=== PATIENT | male | born 1940 | race Caucasian/White ===

== ENCOUNTER 2020-03-20 13:38 | Inpatient (IN) | payer MEDICARE, OTHER ==
[~2020-03-20] VITALS: Ht 167.6 cm; Wt 109.9 kg
[2020-03-20 15:07] LABS: BASOPHILS % 0.4 % (0.0-1.0); EOSINOPHILS # (AUTO) 0.1 (0.0-0.4); EOSINOPHILS % 1.8 % (0.0-6.0); HEMATOCRIT 39.6 % (38.2-49.6); HEMOGLOBIN 12.9 g/dL (14.0-18.0); LYMPHOCYTES # (AUTO) 2.3 (1.0-3.2); LYMPHOCYTES % 28.6 % (18.0-39.1); MEAN CORPUSCULAR HEMOGLOBIN 32.2 pg (28-32); MEAN CORPUSCULAR HGB CONC 32.6 g/dL (31-35); MEAN CORPUSCULAR VOLUME 98.8 fL (81-99); MONOCYTES # (AUTO) 0.7 (0.2-0.8); MONOCYTES % 9.3 % (4.4-11.3); NEUTROPHILS # (AUTO) 4.7 (2.1-6.9); NEUTROPHILS % 59.3 % (38.7-80.0); PLATELET COUNT 235 x10e3/uL (140-360); RED BLOOD COUNT 4.01 x10e6/uL (4.3-5.7); RED CELL DISTRIBUTION WIDTH 13.2 % (11.7-14.4)
[2020-03-20 15:10] LABS: INR 0.93
[2020-03-20 15:11] LABS: PARTIAL THROMBOPLASTIN TIME 28.1 seconds (23.8-35.5)
[2020-03-20 15:21] LABS: ALBUMIN/GLOBULIN RATIO 1.4 (0.8-2.0); ANION GAP 15.5 mmol/L (8-16); CALCIUM 8.3 mg/dL (8.4-10.2); CREATININE, SERUM 2.35 mg/dL (0.72-1.25); POTASSIUM 4.5 mmol/L (3.5-5.1)
[2020-03-20 15:24] LABS: CLARITY,URINE TURBID (CLEAR); COLOR,URINE RED (YELLOW)
[2020-03-20 15:25] LABS: BILIRUBIN,URINE NEGATIVE (NEGATIVE); KETONES,URINE NEGATIVE (NEGATIVE); LEUKOCYTE ESTERASE ,URINE NEGATIVE (NEGATIVE); NITRITE,URINE NEGATIVE (NEGATIVE); PROTEIN,URINE DIPSTICK 2+ (NEGATIVE); URINE UROBILINOGEN 0.2 mg/dL (0.2 - 1)
[2020-03-20 15:27] LABS: CREATINE KINASE MB 1.2 ng/mL (0-5.0)
[2020-03-20 15:28] LABS: RBC,URINE 21-50 /HPF (0-5)
--- NOTE | 2020-03-20 15:52 | Diagnostic Imaging Report ---
EXAMINATION: CHEST SINGLE (PORTABLE) INDICATION: Shortness of breath COMPARISON: None FINDINGS: LINES/TUBES:None LUNGS:The lungs are well-inflated. No focal consolidation or pulmonary edema. PLEURA:No pleural effusion or pneumothorax. MEDIASTINUM:The cardiomediastinal silhouette appears normal in size and shape. BONES/SOFT TISSUES:No acute osseous injury. ABDOMEN:No free air under the diaphragm. IMPRESSION: No focal pneumonia or pulmonary edema. Signed by: Pablo Cox MD on 03/20/2020 3:46 PM
[2020-03-20] MEDS ORDERED: ONDANSETRON HCL INJ 2MG/ML 2ML 2 MG/ML VIAL IV PRN (16:30)
[2020-03-20] MEDS ORDERED: SODIUM CHLORIDE FLUSH 10 ML SYR INJ PRN (16:30)
[2020-03-20] MEDS ORDERED: FUROSEMIDE INJ 10 MG/ML 4 ML VIAL IV ONE (16:30)
--- NOTE | 2020-03-20 16:36 | Emergency Department Note ---
History of Present Illnes History of Present Illness Chief Complaint: Genitourinary History of Present Illness This is a 80 year old male STATES HE'S BEEN URINATING BLOOD SINCE MON DENIES TRAUMA DENIES DYSURIA DENIES ABD PAIN DENIES PROSTATE PROBLEMS STATES HE WAS TAKING 2 ELIQUIS BUT CUT IT DOWN HIMSELF TO 1 THEN NONE Historian: Patient Arrival Mode: Car Heavy Mobile Equipment Repairer Required: No Onset (how long ago): day(s) (3) Location: URINE Quality: BLEEDING, NO PAIN Radiation: non-radiation Severity: mild Onset quality: gradual Progression: unchanged Chronicity: new Relieving factors: none Exacerbating factors: none Associated symptoms: denies other symptoms Treatments prior to arrival: none Past Medical/Family History Physician Review I have reviewed the patient's past medical and family history. Any updates have been documented here. 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 Social History Smoking Cessation: Former smoker Counseling Performed: No Alcohol Use: None Any Illegal Drug Use: No TB Exposure/Symptoms: No Physically hurt or threatened: No Other Last Tetanus: OOD Any Pre-Existing Lines (PICC,: No Is patient up to date on immun: No Last Flu: utd Last Pneumovax: utd Review of Systems Review of Systems Constitutional: no symptoms EENTM: no symptoms Cardiovascular: no symptoms Respiratory: no symptoms Gastrointestinal: no symptoms Genitourinary: as per HPI, hematuria Musculoskeletal: no symptoms Integumentary: no symptoms Neurological: no symptoms Psychological: no symptoms Endocrine: no symptoms Hematological/Lymphatic: no symptoms Review of other systems All other systems reviewed and negative. Physical Exam Related Data Allergies: Coded Allergies: Penicillins (Verified Allergy, Unknown, 01/07/12) Triage Vital Signs Vital Signs Date Time Temp Pulse Resp B/P (MAP) Pulse Ox O2 Delivery O2 Flow Rate FiO2 03/20/20 14:04 97.9 63 18 179/77 99 Physical Exam CONSTITUTIONAL Constitutional: well-developed, well-nourished HENT HENT: normocephalic, atraumatic, oropharynx clear/moist, nose normal HENT - Ear: left ext ear normal, right ext ear normal EYES Eyes: PERRL, conjunctivae normal NECK Neck: ROM normal PULMONARY Pulmonary: effort normal, breath sounds normal CARDIOVASCULAR Cardiovascular: irregular rhythm, capillary refill normal, normal rate, LLE edema (2+), RLE edema (2+) GASTROINTESTINAL Abdominal: soft, nontender, bowel sounds normal GENITOURINARY SKIN Skin: warm, dry MUSCULOSKELETAL Musculoskeletal: ROM normal NEUROLOGICAL Neurological: alert, oriented x 3, no gross motor or sensory deficits PSYCHOLOGICAL Psychiatric/behavioral: mood/affect normal, judgement normal Results Laboratory Result Diagram: 03/20/20 1423 03/20/20 1423 Laboratory Laboratory Tests Test 03/20/20 14:23 White Blood Count 7.98 x10e3/uL (4.8-10.8) Red Blood Count 4.01 x10e6/uL (4.3-5.7) Hemoglobin 12.9 g/dL (14.0-18.0) Hematocrit 39.6 % (38.2-49.6) Mean Corpuscular Volume 98.8 fL (81-99) Mean Corpuscular Hemoglobin 32.2 pg (28-32) Mean Corpuscular Hemoglobin Concent 32.6 g/dL (31-35) Red Cell Distribution Width 13.2 % (11.7-14.4) Platelet Count 235 x10e3/uL (140-360) Neutrophils (%) (Auto) 59.3 % (38.7-80.0) Lymphocytes (%) (Auto) 28.6 % (18.0-39.1) Monocytes (%) (Auto) 9.3 % (4.4-11.3) Eosinophils (%) (Auto) 1.8 % (0.0-6.0) Basophils (%) (Auto) 0.4 % (0.0-1.0) Neutrophils # (Auto) 4.7 (2.1-6.9) Lymphocytes # (Auto) 2.3 (1.0-3.2) Monocytes # (Auto) 0.7 (0.2-0.8) Eosinophils # (Auto) 0.1 (0.0-0.4) Basophils # (Auto) 0.0 (0.0-0.1) Absolute Immature Granulocyte (auto 0.05 x10e3/uL (0-0.1) Prothrombin Time 13.0 seconds (11.9-14.5) Prothromb Time International Ratio 0.93 Activated Partial Thromboplast Time 28.1 seconds (23.8-35.5) Urine Color Red (YELLOW) Urine Clarity Turbid (CLEAR) Urine pH 6 (5 - 7) Urine Specific Morley 1.020 (1.010-1.025) Urine Protein 2+ (NEGATIVE) Urine Glucose (UA) Negative (NEGATIVE) Urine Ketones Negative (NEGATIVE) Urine Blood Moderate (NEGATIVE) Urine Nitrite Negative (NEGATIVE) Urine Bilirubin Negative (NEGATIVE) Urine Urobilinogen 0.2 mg/dL (0.2 - 1) Urine Leukocyte Esterase Negative (NEGATIVE) Urine RBC 21-50 /HPF (0-5) Urine WBC None /HPF (0-5) Urine Epithelial Cells None /LPF (NONE) Urine Bacteria None /HPF (NONE) Sodium Level 141 mmol/L (136-145) Potassium Level 4.5 mmol/L (3.5-5.1) Chloride Level 108 mmol/L (98-107) Carbon Dioxide Level 22 mmol/L (22-29) Anion Gap 15.5 mmol/L (8-16) Blood Urea Nitrogen 53 mg/dL (7-26) Creatinine 2.35 mg/dL (0.72-1.25) Estimat Glomerular Filtration Rate 27 ML/MIN (60-) BUN/Creatinine Ratio 23 (6-25) Glucose Level 140 mg/dL (74-118) Calcium Level 8.3 mg/dL (8.4-10.2) Total Bilirubin 0.4 mg/dL (0.2-1.2) Aspartate Amino Transf (AST/SGOT) 14 IU/L (5-34) Alanine Aminotransferase (ALT/SGPT) 14 IU/L (0-55) Alkaline Phosphatase 54 IU/L (40-150) Creatine Kinase 46 IU/L (30-200) Creatine Kinase MB 1.20 ng/mL (0-5.0) Troponin I 0.016 ng/mL (0-0.300) B-Type Natriuretic Peptide 261.5 pg/mL (0-100) Total Protein 6.8 g/dL (6.5-8.1) Albumin 4.0 g/dL (3.5-5.0) Globulin 2.8 g/dL (2.3-3.5) Albumin/Globulin Ratio 1.4 (0.8-2.0) Procedures 12 Lead ECG Interpretation Heavy Mobile Equipment Repairer: Interpreted by ED physician Date: March 20, 2020 Time: 14:13 Prior WEAPONS AND TACTICS INSTRUCTOR tracings: reviewed Rhythm: atrial fibrillation Rate: normal (66) QRS axis: normal Conduction: right bundle branch block ST Segments Normal: Yes Clinical Impression: abnormal ECG Critical Care Time Subsequent provider I assumed direction of critical care for this patient from another provider of my specialty. Assessment & Plan Assessment & Plan Problems: (1) Hematuria (2) CKD (chronic kidney disease) (3) Atrial fibrillation, chronic (4) CHF (congestive heart failure) Assessment & Plan I SPOKE WITH DR Ángela RDZ TO SEE PT, ADMIT. SPOKE WITH DR CHILEL, CONSULT TO DR LANCASTER SPOKE WITH DR JAMESON Depart Disposition: ADMITTED Last Vital Signs Date Time Temp Pulse Resp B/P (MAP) Pulse Ox O2 Delivery O2 Flow Rate FiO2 03/20/20 14:56 85 24 156/80 100 03/20/20 14:04 97.9 GIANNA SCHMIDT MD March 20, 2020 16:36
--- OUTSIDE RECORDS SUMMARY | 2020-03-20 16:40 | XMS REPORT ---
Author Author [facility] Organization [facility] Address [address] [place] [address] [place] [id number] Phone Unavailable Care Team Providers Care Nurse Reviewer Name Role Phone Hipolito SCHMIDT Attphys Unavailable Problems This patient has no known problems. Allergies, Adverse Reactions, Alerts This patient has no known allergies or adverse reactions. Medications This patient has no known medications. Procedures This patient has no known procedures. Results Test Description Test Time Test Comments Results Result Comments Source CHEST SINGLE (PORTABLE) 2020-03-20 15:46:00 [place] [address] Patient Name: BOBBI PETERSON MR #: [id number] : 1940 Age/Sex: 80/M Req #: [id number] Adm Physician: Ordered by: GIANNA SCHMIDT MD Report #: [id number] Location: ER Room/Bed: Procedure: [id number] DX/CHEST SINGLE (PORTABLE) Exam Date: 03/20/20 Exam Time: 1520 REPORT STATUS: Signed EXAMINATION: CHEST SINGLE (PORTABLE) INDICATION: Shortness of breath COMPARISON: None FINDINGS: LINES/TUBES:None LUNGS:The lungs are well-inflated. No focal consolidation or pulmonary edema. PLEURA:No pleural effusion or pneumothorax. MEDIASTINUM:The cardiomediastinal silhouette appears normal in size and shape. BONES/SOFT TISSUES:No acute osseous injury. ABDOMEN:No free air under the diaphragm. IMPRESSION: No focal pneumonia or pulmonary edema. Signed by: Ximena Lim MD on 03/20/2020 3:46 PM Dictated By: XIMENA LIM MD 154 Transcribed By: DANIEL on 03/20/201545 COPY TO: GIANNA SCHMIDT MD
--- NOTE | 2020-03-20 16:55 | Diagnostic Imaging Report ---
EXAM: CT Abdomen and Pelvis WITHOUT intravenous contrast INDICATION: Hematuria COMPARISON: None. TECHNIQUE: Abdomen and pelvis were scanned utilizing a multidetector helical scanner from the lung base to the pubic symphysis without administration of IV contrast. Coronal and sagittal reformations were obtained. IV CONTRAST: None ORAL CONTRAST: None COMPLICATIONS: None RADIATION DOSE: Total DLP: 821 mGy*cm Dose modulation, iterative reconstruction, and/or weight based adjustment of the mA/kV was utilized to reduce the radiation dose to as low as reasonably achievable. FINDINGS: LOWER THORAX: Normal. HEPATOBILIARY: No focal liver lesion. Cholelithiasis without CT evidence of cholecystitis. SPLEEN: No splenomegaly. PANCREAS: No focal masses or ductal dilatation. ADRENALS: No adrenal nodules. KIDNEYS/URETERS: No hydronephrosis or renal calculi. PELVIC ORGANS/BLADDER: Unremarkable. PERITONEUM / RETROPERITONEUM: No free air or fluid. LYMPH NODES: No lymphadenopathy. VESSELS: Moderate scattered atherosclerotic calcifications of the nonaneurysmal abdominal aorta and major branches. GI TRACT: Diverticulosis without CT evidence of diverticulitis. No abnormal bowel thickening. No bowel obstruction. BONES AND SOFT TISSUES: No acute osseous injury. No suspicious lytic or blastic lesions. Multilevel degenerative changes of the visualized spine. Grade 1 retrolisthesis at all levels from L1-L5. IMPRESSION: No hydronephrosis or renal calculi. No solid renal mass lesion. Cholelithiasis without CT evidence of cholecystitis. Diverticulosis without CT evidence of diverticulitis. Signed by: Pablo Cox MD on 03/20/2020 4:48 PM
[2020-03-20] MEDS: CEFTRIAXONE SOD 1 GM/NS 50 ML 50 ML IV SCH (17:04)
[2020-03-20 20:00] VITALS: BP 174/76
--- NOTE | 2020-03-20 20:00 | NUR ---
RECEIVED THE PATIENT FROM ER IN A STRETCHER VIA WHEEL CHAIR.ADMISSION ASSESSMENT DONE.NO RESP.DISTRESS.NO PAIN VOICED.YOSELYN.LOWER EXTREMITY EDEMA NOTED.TELE #[address]ORIENTED TO THE UNIT.BED LOCKED AND IN LOWEST POSITION.PHONE AND CALL LIGHT WITHIN REACH.INSTRUCTED TO CALL FOR ASSISTANCE NEEDED.KEEP MONITOR THE PATIENT.
[2020-03-20 20:20] VITALS: BP 174/76
[2020-03-20 21:00] VITALS: BP 174/76
--- NOTE | 2020-03-20 21:10 | NUR ---
As per the report from er.notified to consults .
--- NOTE | 2020-03-20 21:41 | NUR ---
Cardiology Consult Dictation# [id number]
[2020-03-20] MEDS: METOPROLOL TARTRATE INJ 1 MG/ML VIAL IV PRN (22:00)
--- NOTE | 2020-03-20 22:00 | NUR ---
BP NOTED 174/76 MMOF HG.METOPROLOL 5 MG IV GIVEN.PATIENT IS UNABLE TO PROVIDE HOME MED LIST.
[2020-03-21] VITALS (8 sets, daily range): BP systolic 135–185; BP diastolic 67–83
--- NOTE | 2020-03-21 00:46 | Consultation ---
DATE OF CONSULTATION: 03/20/2020 Cardiology Consultation REQUESTING PHYSICIAN: Carlos Burton MD. REASON FOR CONSULTATION: Atrial fibrillation. HISTORY OF PRESENT ILLNESS: This is an 80-year-old male with history of atrial fibrillation, diabetes mellitus, hypertriglyceridemia, and hypertension, who presents with complaints of hematuria. The patient reports he has been noting acute intermittent blood in his underwear since November. Two days ago, he noted robson hematuria with visible clot. He therefore presented to the hospital for further evaluation. On speaking with the patient, he indicates that he had been progressively self discontinuing medications in attempt to determine what is causing his hematuria. Of note, he has been off Eliquis for one week. In addition, he has held occasional doses of Lasix due to the inconvenience of frequent urination with resulting increase in lower extremity swelling for the last few days. He denies any chest pain, palpitations, orthopnea, PND, or lightheadedness, but does endorse chronic dyspnea on exertion. REVIEW OF SYSTEMS: Negative except as per HPI. PAST MEDICAL HISTORY: 1. Atrial fibrillation on Eliquis, followed by Dr. Tejada for his cardiac care. 2. Diabetes mellitus. 3. Hypertriglyceridemia. 4. Hypertension. 5. Chronic kidney disease. 6. Glaucoma. 7. History of prostate cancer. PAST SURGICAL HISTORY: 1. Abdominal surgery. 2. Cataract surgery. ALLERGIES: PLEASE SEE EMR. MEDICATIONS: Please see medication list. SOCIAL HISTORY: Denies tobacco, alcohol, or illicit drugs. FAMILY HISTORY: Denies. PHYSICAL EXAMINATION: VITAL SIGNS: Temperature 97.4 degrees, pulse 98, respiratory rate 20, blood pressure 172/80, and oxygen saturation 99%. GENERAL: Obese gentleman, in no acute distress. Well-developed, well-nourished. HEENT: Normocephalic, atraumatic. Pupils equal. No scleral icterus. NECK: Supple. No thyromegaly or cervical lymphadenopathy. No carotid bruits. LUNGS: Clear to auscultation bilaterally. No wheezes or crackles. CARDIOVASCULAR: Normal rate. Irregularly irregular. No murmur. Normal S1, S2. ABDOMEN: Soft, nontender. EXTREMITIES: 1+ pitting edema. SKIN: Changes consistent with chronic venous stasis. NEUROLOGIC: Nonfocal exam. LABORATORY DATA: WBC 7.98, hemoglobin 12.9, hematocrit 39.6, platelets 235. Sodium 141, potassium 4.5, chloride 108, CO2 22, BUN 53, creatinine 2.53. Troponin 0.016. BNP 261. EKG, atrial fibrillation with right bundle-branch block. IMPRESSION: 1. Hematuria. 2. Atrial fibrillation. 3. Right bundle-branch block. 4. Diabetes mellitus. 5. Hypertriglyceridemia. 6. Hypertension. 7. Chronic kidney disease. RECOMMENDATIONS: Obtain echocardiogram. Hold the patient's Eliquis given gross hematuria. Monitor the patient closely on telemetry. I agree with gentle diuretics given elevated BNP. Monitor creatinine closely, replete electrolytes. Evaluation of hematuria per Urology. Thank you for this consult. We will continue to follow. Marlena Bradford MD ABS/MODL /[id number]
[2020-03-21 01:03] LABS: CREATINE KINASE MB 1.5 ng/mL (0-5.0)
--- NOTE | 2020-03-21 01:40 | NUR ---
PATIENT VOIDED CLEAR URINE.
--- NOTE | 2020-03-21 06:00 | NUR ---
TRIED TO REACH REGARDING HOME MEDICATION LIST.LEFT MESSAGE.
--- NOTE | 2020-03-21 06:26 | NUR ---
H&P cc: hematuria HPI: 80yoM, PCP none, developed hematuria while on eliquis. Pt had bloody urine for 4 days; no cp/sob. 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, prostate cancer, gait disturbance using walker, periperal edema PSHx: cataract; prostate Allergies; see emr Fh/SH; ; no cigs med;s see MAR ROS: no dizziness/skin rash/back pain/sob/ORDONEZ/vision changes/N/V/D/Cp/SOB v/s; revd PE tired appearing anicteric ns1s2 mod bs soft nt nd 1+ leg edema; skin dry a&ox3; chadwick normal mood labs/meds revd A/P: 80yoM Hematuria- hold eliquis; urology eval Chr A.fib- hold eliquis; cardio on board; f/u echo CHF- f/u echo Peripheral edema- monitor fluid status Gait disturbance- cont walker and PT consult CKD3 due to DM2- monitor; check hab1c/lipids HTN HLD Hx prostate CA DIverticulosis - high fiber diet Cholelithiasis- asymptomatic Prop: Dispo: Cyril Claudio MD, PHD.
[2020-03-21] MEDS ORDERED: DOCUSATE SODIUM 100 MG CAP PO PRN (06:30)
[2020-03-21] MEDS ORDERED: ACETAMINOPHEN 325 MG TAB PO PRN (06:30)
--- NOTE | 2020-03-21 07:00 | NUR ---
Bed side shift report given to oncoming rn.stable condition.
--- NOTE | 2020-03-21 07:01 | NUR ---
BEDSIDE SHIFT REPORT RECEIVED FROM PM NURSE. PT SLEEPING, EASILY AROUSED, NO SIGNS OF DISTRESS. WILL CONTINUE TO MONITOR.
[2020-03-21 08:30] LABS: BASOPHILS % 0.3 % (0.0-1.0); EOSINOPHILS # (AUTO) 0.2 (0.0-0.4); EOSINOPHILS % 2.7 % (0.0-6.0); HEMATOCRIT 40.9 % (38.2-49.6); HEMOGLOBIN 13.3 g/dL (14.0-18.0); LYMPHOCYTES # (AUTO) 1.5 (1.0-3.2); LYMPHOCYTES % 24.2 % (18.0-39.1); MEAN CORPUSCULAR HGB CONC 32.5 g/dL (31-35); MEAN CORPUSCULAR VOLUME 98.6 fL (81-99); MONOCYTES # (AUTO) 0.7 (0.2-0.8); NEUTROPHILS # (AUTO) 3.8 (2.1-6.9); NEUTROPHILS % 61.3 % (38.7-80.0); PLATELET COUNT 225 x10e3/uL (140-360); RED BLOOD COUNT 4.15 x10e6/uL (4.3-5.7); RED CELL DISTRIBUTION WIDTH 13.4 % (11.7-14.4)
[2020-03-21 08:49] LABS: ALBUMIN 3.9 g/dL (3.5-5.0); ALBUMIN/GLOBULIN RATIO 1.3 (0.8-2.0); ANION GAP 16.2 mmol/L (8-16); CALCIUM 9.2 mg/dL (8.4-10.2); CREATININE, SERUM 2.26 mg/dL (0.72-1.25); POTASSIUM 4.2 mmol/L (3.5-5.1)
[2020-03-21 09:10] LABS: CREATINE KINASE MB 2.1 ng/mL (0-5.0)
--- NOTE | 2020-03-21 09:58 | Consultation ---
DATE OF CONSULTATION: 03/21/2020 Urology Consultation REASON FOR CONSULTATION: Gross hematuria. HISTORY OF PRESENT ILLNESS: Moose Moralez is an 80-year-old man, who over 10 years ago was diagnosed with prostate cancer at [facility]. The patient had a complication after this of pelvic abscess and scrotal abscess and required two surgical interventions. The patient was found to have one core of prostate cancer and he went to [facility] where he got proton beam therapy. The patient since the fall noted gross hematuria with b.i.d. dosing of his blood thinner that decreased when he decreased it to once a day. The patient had severe gross hematuria last week and about a week ago stopped his blood thinner, but over the last four days, he still had gross hematuria, so he was reported to the emergency room, and was subsequently admitted. His hematuria has improved since he has been in the hospital. The patient denies dysuria. He reports once a night nocturia. He denies any urolithiasis and urinary tract infections. PAST MEDICAL AND SURGICAL HISTORY: 1. Diabetes mellitus. 2. Hypertension. 3. Hypercholesterolemia. 4. Obesity. 5. Atrial fibrillation followed by Dr. Tejada. 6. Hypertriglyceridemia. 7. Chronic kidney disease. 8. Glaucoma. 9. Status post cataract surgery. ALLERGIES: PENICILLIN. CURRENT MEDICATIONS: Please refer to the MAR. SOCIAL HISTORY: The patient denies smoking, ethanol or drug use. He [place] near the [facility]. He used to work in a chemical plant. FAMILY HISTORY: Noncontributory to the active urological problems. REVIEW OF SYSTEMS: Discussed as above in the history of present illness and past medical history, it is otherwise negative for all systems. PHYSICAL EXAMINATION: GENERAL: A very pleasant 80-year-old man, lying in bed, in no apparent distress. He is currently afebrile. VITAL SIGNS: Currently stable. ABDOMEN: Soft, nondistended, nontender, and obese. There was scarring in the lower abdomen consistent with prior abscess drainage. GENITOURINARY: Testes are descended bilaterally. Testes and epididymides bilaterally unremarkable and nontender. The patient has a normal circumcised male phallus with normal meatus without any lesion. Digital rectal examination is deferred at the present time. For the remaining physical examination systems, please refer to the admission history and physical on the chart. LABORATORY STUDIES: CT scan of the abdomen and pelvis was done without contrast. It revealed unremarkable kidneys, it did reveal cholelithiasis. Urine culture is pending. White blood cell count is 7980, hemoglobin 12.9, platelets 235,000. The patient's creatinine is elevated at 2.35. His calcium is low at 8.3. Urinalysis significant for 21-50 RBCs as well as 2+ protein. ASSESSMENT: 1. Prostate cancer status post radiotherapy. 2. Nocturia. 3. Anemia. 4. Cholelithiasis without symptoms. 5. Chronic renal insufficiency. 6. Gross hematuria. 7. Hypocalcemia. 8. Proteinuria. 9. Obesity. PLAN: 1. We will await urine culture and sensitivity. 2. Hold all blood thinners. 3. I will post the patient to the operating room for cystoscopy with retrograde pyelograms and indicated procedures. The patient's prior radiotherapy as well as working in a chemical plant puts him in a risk for having bladder cancer. 4. I defer the hematological and electrolyte abnormalities to the primary team. Thank you much for involving us in the care of your patient. We will be happy to follow him along with you as well as an outpatient. Gage MD Eloise OH/BETI /[id number]
--- NOTE | 2020-03-21 11:44 | Progress Note ---
DATE: 03/21/2020 Cardiology progress note SUBJECTIVE: The patient denies chest pain or shortness of breath. He reports his hematuria has resolved. OBJECTIVE: VITAL SIGNS: Temperature 96.2 degrees, pulse 79, respiratory rate 20, blood pressure 163/76, and oxygen saturation 94%. GENERAL: Obese man, in no acute distress. Awake and alert. LUNGS: Clear to auscultation bilaterally. No wheezes or crackles. CARDIOVASCULAR: Normal rate. Irregularly irregular rhythm. No murmur. Normal S1, S2. ABDOMEN: Soft, nontender. EXTREMITIES: 1+ pitting edema. CARDIAC MEDICATIONS: None. LABORATORY DATA: Sodium 142, potassium 4.2, chloride 106, CO2 of 24, BUN 51, and creatinine 2.26. WBC 6.19, hemoglobin 13.3, hematocrit 40.9, and platelets 225. TELEMETRY: Personally reviewed and interpreted revealing atrial fibrillation with PVCs. IMPRESSION: 1. Hematuria. 2. Atrial fibrillation. 3. Right bundle-branch block. 4. Diabetes mellitus. 5. Hypertriglyceridemia. 6. Hypertension. 7. Chronic kidney disease. RECOMMENDATIONS: Echocardiogram is pending. We will review the images once available. Continue to hold Eliquis given recent hematuria while Urology evaluation is ongoing. Monitor patient closely on telemetry. Creatinine was stable. Continue gentle diuretics. Replete electrolytes. Continue home cardiac medications otherwise. Thank you for this consult. We will continue to follow. Marlena Bradford MD ABS/MODL /[id number]
[2020-03-21] MEDS ORDERED: TRESIBA100 UNIT/1 (12:05)
[2020-03-21] MEDS ORDERED: GLIMEPIRIDE4 MG PO (12:05)
[2020-03-21] MEDS ORDERED: HYDRALAZINE HCL25 MG PO (12:05)
[2020-03-21] MEDS ORDERED: METOLAZONE5 MG PO (12:05)
[2020-03-21] MEDS ORDERED: PROPAFENONE HC325 MG PO (12:05)
[2020-03-21] MEDS ORDERED: SIMVASTATIN10 MG PO (12:05)
[2020-03-21] MEDS ORDERED: FUROSEMIDE40 MG PO (12:05)
--- NOTE | 2020-03-21 12:19 | NUR ---
SPOKE WITH DR. CHILEL AND REVIEWED HOME MED LIST; STATES CAN RESTART SIMVASTATIN ONLY.
[2020-03-21] MEDS: FUROSEMIDE INJ 10 MG/ML 4 ML VIAL IV SCH ×2 (12:48→18:16)
[2020-03-21 17:03] LABS: CREATINE KINASE MB 2.2 ng/mL (0-5.0)
[2020-03-21] MEDS ORDERED: SODIUM CHLORIDE 0.9% 250ML 250 ML ONE (17:55)
[2020-03-21] MEDS: CEFTRIAXONE SOD 1 GM/NS 50 ML 50 ML IV SCH (18:15)
[2020-03-21] MEDS: METOPROLOL TARTRATE INJ 1 MG/ML VIAL IV PRN (18:17)
--- NOTE | 2020-03-21 19:15 | NUR ---
RECEIVED THE PATIENT IN REPORT.AAOX3.BED LOCKED AND IN LOWEST POSITION.PHONE AND CALL LIGHT WITHIN REACH.INSTRUCTED TO CALL FOR ASSISTANCE NEEDED.
[2020-03-21] MEDS ORDERED: NON-FORMULARY MEDICATION (Simvastatin 10 MG) PO SCH (21:00)
[2020-03-21] MEDS ORDERED: ZOLPIDEM TARTRATE 5 MG TAB PO PRN (21:00)
[2020-03-21] MEDS: SIMVASTATIN 20 MG TAB PO SCH (21:29)
[2020-03-21] MEDS: PROPAFENONE HCL 225 MG CAPCR PO SCH (21:29)
--- NOTE | 2020-03-21 22:00 | NUR ---
patient refused to do Achs.
[2020-03-22] VITALS (8 sets, daily range): BP systolic 113–173; BP diastolic 60–78
[2020-03-22] MEDS: METOPROLOL TARTRATE INJ 1 MG/ML VIAL IV PRN ×2 (00:51→20:15)
--- NOTE | 2020-03-22 01:38 | NUR ---
Resting in the bed.stable condition.
[2020-03-22] MEDS: PROPAFENONE HCL 225 MG CAPCR PO SCH ×3 (05:58→21:41)
--- NOTE | 2020-03-22 06:39 | NUR ---
IM- progress note O/N see below ROS: no dizziness/skin rash/back pain/sob/ORDONEZ/vision changes/N/V/D/Cp/SOB v/s; revd PE tired appearing anicteric ns1s2 mod bs soft nt nd 1+ leg edema; skin dry a&ox3; chadwick normal mood labs/meds revd A/P: 80yoM Hematuria- hold eliquis; urology eval Chr A.fib- hold eliquis; cardio on board; f/u echo CHF- f/u echo Peripheral edema- monitor fluid status Gait disturbance- cont walker and PT consult CKD3 due to DM2- monitor; check hab1c/lipids HTN HLD Hx prostate CA DIverticulosis - high fiber diet Cholelithiasis- asymptomatic Prop: Dispo: 5-15 cystoscopy pending; coronavirus test pending; ROBERT in CKD3; Cyril Claudio MD, PHD.
--- NOTE | 2020-03-22 07:05 | NUR ---
ON NPO BED SIDE SHIFT REPORT GIVEN TO ONCOMING RN.STABLE CONDITION.
[2020-03-22] MEDS: FUROSEMIDE INJ 10 MG/ML 4 ML VIAL IV SCH ×2 (10:00→17:52)
[2020-03-22 12:18] LABS: ANION GAP 19.1 mmol/L (8-16); CALCIUM 9.2 mg/dL (8.4-10.2); CREATININE, SERUM 2.36 mg/dL (0.72-1.25); POTASSIUM 5.1 mmol/L (3.5-5.1)
[2020-03-22] MEDS ORDERED: IOPAMIDOL 300MG/ML 50ML INFUS..BTL IV ONE (14:01)
[2020-03-22] MEDS ORDERED: B&O 60MG R/S 60 MG SUPP PR ONE (14:01)
--- NOTE | 2020-03-22 14:18 | Progress Note ---
DATE: 03/22/2020 Cardiology Progress Note SUBJECTIVE: The patient denies chest pain or shortness of breath. He is awaiting cystoscopy. OBJECTIVE: VITAL SIGNS: Temperature 97 degrees, pulse 85, respiratory rate 18, blood pressure 173/78, and oxygen saturation 97%. GENERAL: Awake, alert, in no acute distress. LUNGS: Clear to auscultation bilaterally. No wheezes or crackles. CARDIOVASCULAR: Normal rate. Irregularly irregular. No murmur. Normal S1, S2. ABDOMEN: Soft, nontender. EXTREMITIES: 1+ pitting edema. CARDIAC MEDICATIONS: 1. Prozac 40 mg IV b.i.d. 2. Simvastatin 10 mg p.o. at bedtime. LABORATORY DATA: Labs none today. TELEMETRY: Personally reviewed and interpreted, revealing atrial fibrillation. IMPRESSION: 1. Hematuria. 2. Atrial fibrillation. 3. Right bundle-branch block. 4. Diabetes mellitus. 5. Hypertriglyceridemia. 6. Hypertension. 7. Chronic kidney disease. RECOMMENDATIONS: Echocardiogram revealed normal LV systolic function with mild concentric LVH. Pseudonormal LV filling pattern was noted. Continue IV diuretics. Volume status is gradually improving. We will continue to hold Eliquis, given recent hematuria while Urology evaluation is ongoing. Monitor the patient closely on telemetry. Home propafenone has been resumed. Monitor heart rate closely. Monitor creatinine. Replete electrolytes. Continue current cardiac medications otherwise. Thank you for this consult. We will continue to follow. Marlena Bradford MD ABS/MODL /[id number]
--- NOTE | 2020-03-22 15:35 | NUR ---
patient returned from OR. natarajan in place. denies pain at this time. wctm.
[2020-03-22] MEDS ORDERED: ACETAMINOPHEN/CODEINE 300MG - 30MG TAB PO PRN (16:45)
[2020-03-22] MEDS ORDERED: B&O 60MG R/S 60 MG SUPP PR PRN (16:45)
--- NOTE | 2020-03-22 17:30 | NUR ---
natarajan draining red urine. natarajan irrigated and a few small clots evacuated. wctm.
[2020-03-22] MEDS: CEFTRIAXONE SOD 1 GM/NS 50 ML 50 ML IV SCH (17:52)
[2020-03-22] MEDS ORDERED: ONDANSETRON HCL INJ 2MG/ML 2ML 2 MG/ML VIAL ONE (18:12)
[2020-03-22] MEDS ORDERED: LIDOCAINE HCL 2% LOCAL INJ 5 ML SDV VIAL INJ ONE (18:12)
[2020-03-22] MEDS ORDERED: PHENYLEPHRINE HCL 1% 10 MG/ML VIAL ONE (18:12)
[2020-03-22] MEDS ORDERED: PROPOFOL IV EMULSION 10 MG/ML 20 ML VIAL ONE (18:12)
[2020-03-22] MEDS ORDERED: SEVOFLURANE INHAL SOLN 250 ML PEN BTL ONE (18:12)
[2020-03-22] MEDS: PHENAZOPYRIDINE HCL 100 MG TAB PO SCH (18:44)
[2020-03-22] MEDS ORDERED: FENTANYL CITRATE/PF 100MCG/2 ML INJ ONE (19:50)
[2020-03-22] MEDS: SIMVASTATIN 20 MG TAB PO SCH (20:15)
[2020-03-23] VITALS (8 sets, daily range): BP systolic 139–192; BP diastolic 53–73
[2020-03-23] MEDS: METOPROLOL TARTRATE INJ 1 MG/ML VIAL IV PRN ×2 (00:17→06:46)
--- NOTE | 2020-03-23 04:57 | NUR ---
IM- progress note O/N see below ROS: no dizziness/skin rash/back pain/sob/ORDONEZ/vision changes/N/V/D/Cp/SOB v/s; revd PE tired appearing anicteric ns1s2 mod bs soft nt nd 1+ leg edema; skin dry a&ox3; [place]wick normal mood labs/meds revd A/P: 80yoM Hematuria- hold eliquis; urology eval Chr A.fib- hold eliquis; cardio on board; f/u echo CHF- f/u echo Peripheral edema- monitor fluid status Gait disturbance- cont walker and PT consult CKD3 due to DM2- monitor; check hab1c/lipids HTN HLD Hx prostate CA DIverticulosis - high fiber diet Cholelithiasis- asymptomatic Prop: Dispo: 5-15 cystoscopy pending; coronavirus test pending; ROBERT in CKD3; 5-16 check labs; Cystoscpy = bladder cancer removed; Cyril Claudio MD, PHD.
[2020-03-23] MEDS: PROPAFENONE HCL 225 MG CAPCR PO SCH ×3 (06:00→21:09)
[2020-03-23] MEDS: PHENAZOPYRIDINE HCL 100 MG TAB PO SCH ×3 (08:08→17:10)
[2020-03-23] MEDS: FUROSEMIDE INJ 10 MG/ML 4 ML VIAL IV SCH ×2 (08:08→17:10)
--- NOTE | 2020-03-23 14:48 | NUR ---
patient refusing to turn even with staff provocation.
[2020-03-23] MEDS: CEFTRIAXONE SOD 1 GM/NS 50 ML 50 ML IV SCH (17:10)
--- NOTE | 2020-03-23 18:18 | Progress Note ---
DATE: 03/23/2020 Cardiology progress note SUBJECTIVE: The patient denies chest pain or shortness of breath. OBJECTIVE: VITAL SIGNS: Temperature 98.6 degrees, pulse 86, respiratory rate 18, blood pressure 152/67, and oxygen saturation 99% on room air. GENERAL: Awake, alert, in no acute distress. LUNGS: Clear to auscultation bilaterally. No wheezes or crackles. CARDIOVASCULAR: Normal rate. Regular rhythm. No murmur. Normal S1, S2. ABDOMEN: Soft, nontender. EXTREMITIES: Trace edema. CARDIAC MEDICATIONS: 1. Propafenone 225 mg p.o. q.8 hours. 2. Furosemide 40 mg IV b.i.d. 3. Simvastatin 10 mg p.o. at bedtime. LABORATORY DATA: None today. TELEMETRY: Personally reviewed and interpreted, revealing normal sinus rhythm with PVCs. IMPRESSION: 1. Hematuria. 2. Atrial fibrillation. 3. Right bundle-branch block. 4. Diabetes mellitus. 5. Hypertriglyceridemia. 6. Hypertension. 7. Chronic kidney disease. RECOMMENDATIONS: Echocardiogram revealed normal LV systolic function with mild concentric LVH. Pseudonormal LV filling pattern was noted. Continue IV diuretics. Monitor creatinine. Replete electrolytes. Volume status has improved. Monitor the patient closely on telemetry. Continue propafenone. The patient brought his medication from home for use. The patient will need to restart Eliquis for CVA prophylaxis once Urology evaluation has been completed. Await their recommendations. Continue current cardiac medications. Thank you for this consult. We will continue to follow. Marlena Bradford MD ABS/MODL /[id number]
[2020-03-23 20:05] LABS: BASOPHILS % 0.2 % (0.0-1.0); EOSINOPHILS # (AUTO) 0.1 (0.0-0.4); EOSINOPHILS % 1.2 % (0.0-6.0); HEMATOCRIT 41.1 % (38.2-49.6); LYMPHOCYTES # (AUTO) 1.6 (1.0-3.2); LYMPHOCYTES % 16.6 % (18.0-39.1); MEAN CORPUSCULAR HEMOGLOBIN 31.9 pg (28-32); MEAN CORPUSCULAR HGB CONC 31.6 g/dL (31-35); MEAN CORPUSCULAR VOLUME 100.7 fL (81-99); MONOCYTES # (AUTO) 1.1 (0.2-0.8); MONOCYTES % 11.6 % (4.4-11.3); NEUTROPHILS # (AUTO) 6.5 (2.1-6.9); NEUTROPHILS % 69.9 % (38.7-80.0); PLATELET COUNT 205 x10e3/uL (140-360); RED BLOOD COUNT 4.08 x10e6/uL (4.3-5.7); RED CELL DISTRIBUTION WIDTH 13.2 % (11.7-14.4)
[2020-03-23 20:20] LABS: ANION GAP 17.4 mmol/L (8-16); CALCIUM 8.9 mg/dL (8.4-10.2); CREATININE, SERUM 2.64 mg/dL (0.72-1.25); POTASSIUM 4.4 mmol/L (3.5-5.1)
[2020-03-23] MEDS: SIMVASTATIN 20 MG TAB PO SCH (21:09)
[2020-03-23] MEDS ORDERED: DEXTROSE 50% SYRINGE 50 ML IV PRN (21:15)
--- NOTE | 2020-03-23 21:15 | NUR ---
SPOKE TO DR. CHILEL REGARDING BLOOD GLUCOSE READING 294. NEW ORDER RECEIVED FOR A LOW DOSE HUMULIN R SLIDING SCALE.
[2020-03-23] MEDS: INSULIN REGULAR, HUMAN 100 UNIT/1 ML 3ML VIAL SQ SCH (21:25)
[2020-03-24] VITALS (8 sets, daily range): BP systolic 127–161; BP diastolic 66–89
[2020-03-24] MEDS: PROPAFENONE HCL 225 MG CAPCR PO SCH ×3 (05:43→21:30)
[2020-03-24] MEDS: INSULIN REGULAR, HUMAN 100 UNIT/1 ML 3ML VIAL SQ SCH ×4 (07:30→20:38)
[2020-03-24] MEDS: FUROSEMIDE INJ 10 MG/ML 4 ML VIAL IV SCH ×2 (08:04→17:06)
[2020-03-24] MEDS: PHENAZOPYRIDINE HCL 100 MG TAB PO SCH ×3 (08:04→17:07)
--- NOTE | 2020-03-24 12:14 | NUR ---
IM- progress note O/N see below ROS: no dizziness/skin rash/back pain/sob/ORDONEZ/vision changes/N/V/D/Cp/SOB v/s; revd PE tired appearing anicteric ns1s2 mod bs soft nt nd 1+ leg edema; skin dry a&ox3; [place]wick normal mood labs/meds revd A/P: 80yoM Hematuria- hold eliquis; urology eval Chr A.fib- hold eliquis; cardio on board; f/u echo CHF- f/u echo Peripheral edema- monitor fluid status Gait disturbance- cont walker and PT consult CKD3 due to DM2- monitor; check hab1c/lipids HTN HLD Hx prostate CA DIverticulosis - high fiber diet Cholelithiasis- asymptomatic Prop: Dispo: 5-15 cystoscopy pending; coronavirus test pending; ROBERT in CKD3; 5-16 check labs; Cystoscpy = bladder cancer removed; 5-17 d/c planning; Cyril Claudio MD, PHD.
[2020-03-24 13:16] LABS: CHOL/HDL RATIO 4.7 (3.9-4.7)
[2020-03-24] MEDS: CEFTRIAXONE SOD 1 GM/NS 50 ML 50 ML IV SCH (17:06)
[2020-03-24] MEDS: METOPROLOL TARTRATE 25 MG TAB PO SCH (17:07)
--- NOTE | 2020-03-24 20:13 | Progress Note ---
DATE: 03/24/2020 Cardiology Progress Note SUBJECTIVE: The patient denies chest pain or shortness of breath. OBJECTIVE: VITAL SIGNS: Temperature 99.4 degrees, pulse 119, respiratory rate 20, blood pressure 161/89, and oxygen saturation 97% on room air. GENERAL: Awake, alert, and in no acute distress. LUNGS: Clear to auscultation bilaterally. No wheezes or crackles. CARDIOVASCULAR: Tachycardic. Irregularly irregular. No murmur. Normal S1 and S2. ABDOMEN: Soft and nontender. EXTREMITIES: Trace edema. CARDIAC MEDICATIONS: Propafenone 225 mg p.o. q.8 hours, furosemide 40 mg IV b.i.d., and simvastatin 10 mg p.o. at bedtime. LABORATORY DATA: WBC 9.35, hemoglobin 13, hematocrit 41.1, and platelets 205. Cholesterol , triglycerides 228, LDL 79, and HDL 34. Telemetry was personally reviewed and interpreted, revealing atrial fibrillation with rapid ventricular response. IMPRESSION: 1. Hematuria. 2. Atrial fibrillation with rapid ventricular response. 3. Right bundle-branch block. 4. Diabetes mellitus. 5. Hypertriglyceridemia. 6. Hypertension. 7. Chronic kidney disease. RECOMMENDATIONS: Echocardiogram revealed normal LV systolic function with mild concentric LVH. Pseudonormal LV filling pattern was noted. Continue IV diuretics. Monitor creatinine. Replete electrolytes. Lung status has improved. Monitor the patient closely on telemetry. Continue propafenone. We will start metoprolol for rate control as well. The patient will need to restart Eliquis for CVA prophylaxis once Urology evaluation has been completed. Await their recommendations. Continue current cardiac medications. Thank you for this consult. We will continue to follow. Marlena Bradford MD ABS/MODL /[id number]
[2020-03-24] MEDS: SIMVASTATIN 20 MG TAB PO SCH (20:38)
[2020-03-25 00:05] VITALS: BP 101/60
--- NOTE | 2020-03-25 02:54 | Operative Report ---
DATE OF PROCEDURE: 03/22/2020 SURGEON: Gage Navas MD PREOPERATIVE DIAGNOSIS: Hematuria. POSTOPERATIVE DIAGNOSES: 1. Hematuria. 2. Bladder cancer. 3. Potential for left renal colic. OPERATIONS PERFORMED: 1. Cystourethroscopy with bilateral ureteral catheterization and retrograde ureteropyelography. 2. Cystourethroscopy with insertion of left indwelling ureteral stent. 3. Cystourethroscopy with transurethral resection of medium-sized bladder tumor at ranging in diameter of resection area to greater than 3 cm (separate procedure performed for the bladder cancer). ANESTHESIA: General. COMPLICATIONS: None. CLINICAL SUMMARY: Moose Moralez is an 80-year-old male with gross hematuria. He was brought for the above procedures. He is aware of the risks of bleeding, infection, injury to adjacent structures, need for additional procedures and elected to proceed. OPERATIVE PROCEDURE IN DETAIL: Informed consent was verified. Moose Moralez was properly identified and taken to the operating room, placed in the cystoscopy table in supine position. Anesthesia was uneventfully begun. The patient was then carefully gently repositioned in dorsal lithotomy position with all pressure points well padded. His genitalia were prepared and draped in usual sterile fashion. Cystoscope sheath with the visual obturator in place was atraumatically inserted. The patient's urethra was guided unremarkable distal urethra through normal sphincteric region through the prostate bed, which was significant for BPH and into the patient's bladder and drained it. Panendoscopy revealed normally positioned configured ureteral orifices. There was a bladder cancer on the left lateral wall that was encroaching onto the left ureteral orifice. No other suspicious lesions were identified. Ureteral catheter was used to cannulate each ureter and retrograde ureteropyelograms were performed. With cystoscopic and fluoroscopic guidance, a left-sided indwelling ureteral stent was then placed it was coiled to the patient's kidneys as well as the patient's bladder. The retaining suture was removed. Interpretation of retrograde ureteropyelography contrast was instilled in retrograde fashion bilaterally. There were no tumors, no stones, no diverticula. Unobstructed drainage was observed bilaterally fluoroscopically. Cold cup biopsy forceps were then utilized to resect the tumor. We then utilized the Bugbee electrode to coagulate the base of the tumor as well as circumferentially to it, this treating total area of approximately 3 cm. The hemostasis was excellent. The cystoscope was withdrawn, Stacy catheter was placed. It was irrigated to and fro to ensure it worked properly. A belladonna and opium suppository were placed revealing a 40 g prostate, smooth, nonfluctuant without any nodules. The patient was then uneventfully reversed from anesthesia and taken to recovery in stable condition. There were no complications to the procedure. He tolerated the procedure well. Estimated blood loss was minimal. PLAN: Plan will be to resume the patient's anticoagulation after there is no hematuria for 48 hours. Following this, we will plan to follow the patient up in the office in approximately two weeks to remove his Stacy catheter. Ongoing urological followup is a must. Gage MD WEN Navas/BETI /[id number]
[2020-03-25 04:00] VITALS: BP 137/64
[2020-03-25] MEDS: PROPAFENONE HCL 225 MG CAPCR PO SCH ×2 (06:10→14:00)
[2020-03-25] MEDS: INSULIN REGULAR, HUMAN 100 UNIT/1 ML 3ML VIAL SQ SCH ×3 (08:30→16:42)
--- NOTE | 2020-03-25 08:40 | NUR ---
MD HAIDER INTO SEE PT, DISCUSSED POC, BURROWS WITH RED TINGED DRAINAGE NOTED, IRRIGATED BURROWS PER ORDER
[2020-03-25 08:44] VITALS: BP 150/70
[2020-03-25] MEDS: FUROSEMIDE INJ 10 MG/ML 4 ML VIAL IV SCH ×2 (08:48→17:02)
[2020-03-25] MEDS: METOPROLOL TARTRATE 25 MG TAB PO SCH (08:48)
[2020-03-25] MEDS: PHENAZOPYRIDINE HCL 100 MG TAB PO SCH ×3 (08:48→18:26)
[2020-03-25 08:49] VITALS: BP 150/70
[2020-03-25 12:02] VITALS: BP 99/76
[2020-03-25 16:11] VITALS: BP 118/60
[2020-03-25] MEDS: CEFTRIAXONE SOD 1 GM/NS 50 ML 50 ML IV SCH (16:47)
[2020-03-25] MEDS ORDERED: LOPRESSOR25 MG PO (17:17)
[2020-03-25] MEDS ORDERED: COLACE100 MG PO (17:17)
[2020-03-25] MEDS ORDERED: KEFLEX500 MG PO (17:17)
[2020-03-25] MEDS ORDERED: TYLENOL WITH C1 EACH PO (17:29)
[2020-03-25] MEDS ORDERED: MACROBID 100 M100 MG PO (17:29)
--- NOTE | 2020-03-25 18:27 | NUR ---
MD CHILEL INTO SEE PT, DISCUSSED DISCHARGE INSTRUCTIONS, PT VERBALIZED UNDERSTANDING, PT EDUCATED ON HOW TO CHANGE FROM OVERNIGHT BAG TO LEG BAG, PT INSIST ON "KEEPING THE BIG BAG ON TO GO HOME", PT EDUCATED ON HOW TO IRRIGATE BURROWS IF NO DRAINAGE NOTED , ALL SUPPLIES SENT WITH PT, ALL DISCHARGE INSTRUCTIONS REVIEWED, PT AGAIN VERBALIZED UNDERSTANDING, WHEELED OFF UNIT VIA WC Addendum: 03/25/20 at 1832 by Felicia Leong RN PT EDUCATED TO NOT RESTART BLOOD THINNER UNTIL OKAYED WITH DR HAIDER AFTER NO BLOOD VISIBLE IN BURROWS, PT VERBALIZED UNDERSTANDING
[2020-03-25] MEDS ORDERED: METOPROLOL TARTRATE 25 MG TAB PO SCH (21:00)
--- NOTE | 2020-03-26 11:22 | NUR ---
ORDERS REC'D THIS MORNING TO ARRANGE HOME HEALTH FOR THIS PT ORDERS WRITTEN 03/25 AT 18:39 PT WAS DISCHARGED YESTERDAY EVENING CM CALLED PT AT [phone] NO ANSWER; LEFT VOICE MAIL ASKING HIM TO RETURN MY CALL TO SET UP HOME HEALTH AWAIT CALL BACK
--- NOTE | 2020-03-26 14:06 | NUR ---
REC'D CALL BACK FROM PT'S [facility] CELL [phone] THEY ARE AGREEABLE TO HOME HEALTH CARE AND CHOSE [facility] PH: [phone] FAX: [phone] [address] AND PHONE NUMBER WITH PT'S FAXED CLINICAL TO ABOVE FAX; CONFIRMATION REC'D EXPLAINED TO THAT SHE NEEDS TO MAKE AN APPT TO HAVE BURROWS CATH REMOVED AT DR SOFÍA SPARROW OFFICE IN 2 WEEKS PROVIDED HER WITH ADDRESS AND PHONE NUMBER AND ENCOURAGED HER TO CALL AND MAKE APPT WHEN WE FINISH TALKING SHE AGREED
== END 2020-03-25 18:31 | disposition home or self-care (01) | DRG 657 ==
LOC: ER 13:38 → ERHOLD 16:19 → MED/SURG 20:09 → OBSVTOIN 03-21 07:31
PROVIDERS: ADMIT Internal Medicine; ATTEND Internal Medicine
PROC: 0TBB8ZZ Excision of Bladder, Via Natural or Artificial Opening Endoscopic (ICD-10-PCS; 2020-03-22)
PROC: BT141ZZ Fluoroscopy of Kidneys, Ureters and Bladder using Low Osmolar Contrast (ICD-10-PCS; 2020-03-22)
PROC: 0T778DZ Dilation of Left Ureter with Intraluminal Device, Via Natural or Artificial Opening Endoscopic (ICD-10-PCS; principal; 2020-03-22 15:00)
DX: D09.0 Carcinoma in situ of bladder (principal); I13.0 Hypertensive heart and chronic kidney disease with heart failure and stage 1 through stage 4 chronic kidney disease, or unspecified chronic kidney disease; I48.20 Chronic atrial fibrillation, unspecified; N17.9 Acute kidney failure, unspecified; R31.9 Hematuria, unspecified; I50.9 Heart failure, unspecified; Z79.01 Long term (current) use of anticoagulants; E78.5 Hyperlipidemia, unspecified; E11.22 Type 2 diabetes mellitus with diabetic chronic kidney disease; E78.1 Pure hyperglyceridemia; Z85.46 Personal history of malignant neoplasm of prostate; E66.9 Obesity, unspecified; E83.51 Hypocalcemia; K80.20 Calculus of gallbladder without cholecystitis without obstruction; D64.9 Anemia, unspecified; Z68.39 Body mass index [BMI] 39.0-39.9, adult; I45.10 Unspecified right bundle-branch block; R80.9 Proteinuria, unspecified; N23 Unspecified renal colic; N18.3 Chronic kidney disease, stage 3 (moderate); K57.90 Diverticulosis of intestine, part unspecified, without perforation or abscess without bleeding; Z79.4 Long term (current) use of insulin
CPT/HCPCS: 36415; 71045; 74176; 74420; 80048; 80053; 80061; 81001; 82550; 82553; 82948; 83036; 83735; 83880; 84484; 85025; 85610; 85730; 87086; 87635; 88305; 88307; 93005; 93306; 96372; 99284; C1758; C1769; C2617; G0378; J0696; J1817; J1940; J2001; J2370; J2405; J3010; J7050